=== PATIENT | female | born 1980 | race Caucasian/White ===

== ENCOUNTER 2024-07-17 16:55 | Outpatient (CLI) | payer BC, SELFPAY ==
--- OUTSIDE RECORDS SUMMARY | 2024-07-17 16:58 | XMS_ITS | Referral Summary ---
Author Organization [facility] Address [address] [place] [id number] Care Team Providers Care Adult Psychiatrist Name Role Phone Alexander Bradford Primary Care Provider León Valles MD Unavailable [phone] Basilio Crystal Unavailable Allergies Active Allergy Reactions Criticality Noted Date Comments Blood-Group Specific Substance Unknown 11/01/2012 Patient has a Non-Specific antibody. Blood product orders may be delayed. Draw two purple top tubes and one red top tube for all Type and Screen/Type and Crossmatch orders. Prednisone Unknown 10/27/2015 Rapid heart rate. (pt thinks it was dose related) Medications atorvastatin (LIPITOR) 40 MG tablet Take 40 mg by mouth daily Active HYDROcodone-acet aminophen (NORCO) 10-325 MG per tablet Take 1 tablet by mouth every 4 hours as needed 02/17/2017 Active Active Problems Problem Noted Date Diagnosed Date Pelvic pain 06/11/2019 Overview (06/11/2019): Added automatically from request for surgery [id number] Sacroiliac pain 06/18/2013 Social History Tobacco Use Types Packs/Day Years Used Date Smoking Tobacco: Former Cigarettes Smokeless Tobacco: Never Tobacco Cessation:Counseling Given: No Alcohol Use Standard Drinks/Week Comments Not Currently 0 (1 standard drink = 0.6 oz pur e alcohol) Rare PHQ-2 Answer Date Recorded PHQ-2 Score 0 09/19/2018 Comments No Sex and Gender Information Value Date Recorded Sex Assigned at Not on file 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 Gender Identity Not on file Sexual Orientation Not on file Last Filed Vital Signs Vital Sign Reading Time Taken Comments Blood Pressure 118/80 07/31/2019 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 Pulse 62 07/09/2019 11:15 AM CDT Temperature 36.7 ??C (98 ??F) 07/09/2019 11:15 AM CDT Respiratory Rate 10 07/09/2019 11:15 AM CDT Oxygen Saturation 97% 07/09/2019 11:15 AM CDT Inhaled Oxygen Concentration - - Weight 106.6 kg (235 lb) 07/31/2019 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
--- OUTSIDE RECORDS SUMMARY | 2024-07-17 16:58 | XMS_ITS | Clinical Summary ---
Author Organization [facility] [employer] [facility] [employer] Address [place], [place] [address] Care Team Providers Care Licensed Life And Health Agent Name Role Phone Rachell Alfaro DO Primary Care Provider [phone] Allergies Active Allergy Reactions Criticality Noted Date Comments Blood-Group Specific Substance Other - Describe In Comment Field,*Unknown - Follow up needed 11/01/2012 Patient has a Non-Specific antibody. Blood product orders may be delayed. Draw two purple top tubes and one red top tube for all Type and Screen/Type and Crossmatch orders. Patient has a Non-Specific antibody. Blood product orders may be delayed. Draw two purple top tubes and one red top tube for all Type and Screen/Type and Crossmatch orders. Prednisone Tachycardia,*Unknown - Follow up needed 10/27/2015 Rapid heart rate. (pt thinks it was dose related) Medications Medication Sig Dispensed Refills Start Date End Date Status aluminum chloride (Hypercare) 20 % external solutionIndications:E xcessive sweating Apply topically to affected area(s) at bedtime. 60 mL 11 12/29/2022 Active fenofibrate nanocrystallized (TRICOR) 145 mg tabletIndications:Mix ed hyperlipidemia TAKE 1 TABLET (145 MG) BY MOUTH ONCE DAILY WITH A MEAL 90 Tablet 3 04/16/2024 Active atorvastatin (LIPITOR) 40 mg tabletIndications:Mix ed hyperlipidemia Take 1 Tablet (40 mg) by mouth once daily. 90 Tablet 3 06/10/2024 Active lisinopriL (PRINIVIL; ZESTRIL) 20 mg tabletIndications:Ess ential hypertension Take 1 Tablet (20 mg) by mouth once daily. 90 Tablet 3 06/10/2024 Active HYDROcodone-acetamino phen (7.5-325 mg/tablet)Indications :Bulge of lumbar disc without myelopathy Take 1 Tablet by mouth 4 times daily if needed for Pain. 112 Tablet 07/09/2024 Active HYDROcodone-acetamino phen (7.5-325 mg/tablet)Indications :Bulge of lumbar disc without myelopathy Take 1 Tablet by mouth 4 times daily if needed for Pain. 112 Tablet 06/11/2024 4 Discontinu ed(Reorder (E-cancel not sent)) Active Problems Problem Noted Date Diagnosed Date History of MRSA infection 05/13/2021 Infected cyst of skin 05/13/2021 Pelvic pain 06/11/2019 12/29/2022 Overview (12/29/2022): Added automatically from request for surgery [id number] Fatty liver 06/06/2019 Prediabetes 05/01/2019 Overview (05/01/2019): A1c is 5.7 in April 2019 Intermittent vertigo 02/08/2018 Lumbar facet arthropathy 01/08/2015 Chronic LBP 11/08/2014 Pain medication agreement 02/20/2013 Overview (11/13/2023): Prescriber: Dr. Basilio Crystal, [facility] Alexander Bradford MD Ok to fill at same amount/dose/frequency in my absence. 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 Endometriosis, site unspecified 06/23/2011 L5-S1 DDD with Annular Tear 10/07/2010 Sacroiliac pain 09/28/2010 Mixed hyperlipidemia 07/22/2010 Endometrioma 04/02/2010 Cavus deformity of foot, acquired 11/06/2008 Major depressive disorder, recurrent episode, un specified 01/02/2008 Abnormal glandular Papanicolaou smear of cervix 07/27/2007 Overview (07/27/2007): colposcopy x2 1997 and 1999 CAN II History of polycystic ovaries 2007 Obesity, unspecified 05/09/2007 Resolved Problems Problem Noted Date Diagnosed Date Resolved Date Right ovarian cyst 06/06/2019 9 Back pain 09/28/2010 09/28/2010 Irregular menstrual cycle 05/09/2007 Encounters Date Type Department Care Team Description 07/01/2024 Refill [facility] [address] [place] [address] Basilio Crystal MD Refill Request (HYDROcodone-acetaminop hen (7.5-325 mg/tablet) /) 06/04/[address] [place] [address] Basilio Crystal MD Refill Request (HYDROcodone-acetaminop hen (7.5-325 mg/tablet)) 05/24/2024 3:20 PM CDT Office Visit [address] [place] [address] Rachell Alfaro DO Physical (44 year old ); Medication Management (Refills ); Knee Pain/problem (LEFT - since end of March, no injury or previous problems, has some decreased sensation in the toes (x1 week) - on her feet for 12 hour shifts ); Form (THRIVE form ); Other (Went to [facility] yesterday Glycoprrolate 1mg for sweating ) 05/24/2024 Travel 05/14/[address] [place] [address] Rachell Alfaro DO Refill Request ( LISINOPRIL 20MG TABLET-90 days) 05/10/[address] [address] Basilio Crystal MD Refill Request (HYDROcodone-acetaminop hen (7.5-325 mg/tablet) ) 05/10/[address] [address] Rachell Alfaro DO Refill Request (Lisinopril) 05/08/2024 2:20 PM CDT Office Visit [address] [place] [address] Basilio Crystal MD Follow Up (back pain and medications management) 05/08/2024 Travel from Last 3 Months Immunizations Name Administration Dates Next Due Influenza, IIV3 (Age 6-35 mos) 05/31/2019 Influenza, IIV3 (Age >=3 years) 05/23/2012,05/25 Influenza, IIV4 05/28/2018,05/22/2013 Influenza, IIV4 (=>6mos) MDV 06/25/2019,06/01/20 16 Td (Age >=7 Years) 01/07/2003,12/10/2002 Tdap 05/24/2024,06/13/2013 Family History Medical History Relation Name Comments Other Father b 194 recoveri ng alcoholic Heart Disease Maternal Grandfather ND - 7 0's Hyperlipidemia Maternal Grandfather Hyperlipidemia Maternal Grandmother Hyperlipidemia Mother Hypertension Mother b 194 Cancer Paternal Grandmother brain C A Relation Name Status Comments Father Maternal Grandfather Maternal Grandmother Mother Paternal Grandmother Social History Tobacco Use Types Packs/Day Years Used Date Smoking Tobacco: Never Smokeless Tobacco: Never Tobacco Cessation:Counseling Given: Yes Alcohol Use Standard Drinks/Week Comments No 0 (1 standard drink = 0.6 oz pur e alcohol) PHQ-2 Answer Date Recorded PHQ-2 TOTAL SCORE 0 05/24/2024 Social Connections Answer Date Recorded Do you often feel lonely or isolated from those around you? 0 05/24/2024 Financial Resource Strain Answer Date R ecorded Difficulty of Paying Living Expenses 3 05/24/2024 Difficulty of Paying Living Expenses Not on file 05/24/2024 Food Insecurity Answer Date Recorded Do you worry your food will run out before you are able to buy more? 1 05/24/2024 Transportation Needs Answer Date Record ed Does lack of transportation keep you from medica l appointments? 1 05/24/2024 Does lack of transportation keep you from work, meetings or getting things that you need? 1 05/24/2024 Housing Stability Answer Date Recorded What is your housing situation today? 1 05/24/2024 Sex and Gender Information Value Date Recorded Sex Assigned at Not on file Gender Identity Not on file Sexual Orientation Not on file Obstetrics History Para Term AB IAB SAB Ectopic Multiple Livin g Live Births 2 2 2 0 0 0 0 0 2 Date Outcome GA Total Labor Labor/2nd/3rd Weight Sex Type Anes PTL Sanjana A1 A5 Name Clin Term Term Comments x2 Last Filed Vital Signs Vital Sign Reading Time Taken Comments Blood Pressure 118/80 05/24/2024 3:26 PM CDT Pulse 80 05/24/2024 3:26 PM CDT Temperature 36.9 ??C (98.5 ??F) 01/04/2024 2:08 PM CD T Respiratory Rate 18 01/30/2018 9:13 AM CDT Oxygen Saturation 96% 05/24/2024 3:26 PM CDT Inhaled Oxygen Concentration - - Weight 121.8 kg (268 lb 8 oz) 05/24/2024 3:26 PM CDT Height 178 cm (5' 10.08) 05/24/2024 3:26 PM CDT Body Mass Index 38.44 05/24/2024 3:26 PM CDT Plan of Treatment Upcoming Encounters Date Type Department Care Team (Late st Contact Info) Description 09/02/2024 1:40 PM HEALTH MANAGER Office Visit [facility] [address] [place] [address] Basilio Crystal MD [address] [place] [address] Health Maintenance Due Date Last Done Comments COVID-19 vaccine series ( season) 2024 Influenza for age 9-49 05/12/2024 9, 05/28/2018, 06/01/2016, Additional history exists BMI (ht and wt on same day) for age 18+ 05/24/2025 05/24/2024, 12/29/2022, 11/08/2021, Additional history exists Depression screening for age 12+ 05/24/2025 05/24/2024, 12/29/2022, 12/19/2022, Additional history exists Tetanus booster 05/24/2034 05/24/2024, 11/2012, 06/13/2013, Additional history exists HIV for age 15-65 Completed 12/29/2022 Hepatitis C screening for age 18-79 Completed 12/29/2022 Tdap Completed 05/24/2024, 06/13/2013 Pneumococcal series for age 6-64 Aged Out No longer eligible based on patient's age to complete this topic Procedures Procedure Name Priority Date/Time Associated Diagnosis Comments ALT (SGPT) Routine 05/24/2024 4:13 PM CDT Mixed hyperlipidemia HEMOGLOBIN A1C MONITORING (POCT) Routine 05/24/2024 4:13 PM CDT Prediabetes BASIC METABOLIC PANEL Routine 05/24/2024 4:13 PM CDT Annual physical exam LIPID PANEL W REFLEX MEASURED LDL Routine 05/24/2024 4:13 PM CDT Annual physical exam LC HIV-1/O/2, 4TH GENERATION Routine 12/29/2022 4:40 PM CDT Screening for HIV (human immunodeficiency virus) LC HCV ANTIBODY RFX TO QUANT PCR Routine 12/29/2022 4:40 PM CDT Need for hepatitis C screening test from Last 3 Months or Most Recently Relevant to Health Maintenance Results * (ABNORMAL) LIPID PANEL W REFLEX MEASURED LDL (05/24/2024 4:13 PM CDT) CHOLESTEROL,TOTAL 115 100 - 199 mg/dL 05/24/2024 11:34 PM CDT [facility] Comment: Cholesterol, Total Reference Ranges Desirable <200 mg/dL Borderline 200-239 mg/dL High >=240 mg/dL TRIGLYCERIDES 131 <150 mg/dL 05/24/2024 11:34 PM CDT [facility] HDL CHOLESTEROL 35(L) >40 mg/dL 11:34 PM CDT [facility] NON-HDL CHOLESTEROL 80 <145 mg/dl 05/24/2024 11:34 PM CDT [facility] CHOL/HDL RATIO 3.29 <4.50 05/24/2024 11:34 PM CDT [facility] LDL CHOLESTEROL 54 <=130 mg/dL 05/24/2024 11:34 PM CDT [facility] VLDL CHOLESTEROL 26 <=30 mg/dL 05/24/2024 11:34 PM CDT [facility] PROVIDER ORDERED STATUS RANDOM 05/24/2024 11:34 PM CDT [facility] Blood BLOOD SPECIMEN / Unknown Venipuncture / Unknown 05/24/2024 4:13 PM CDT 05/24/2024 4:15 PM CDT Rachell Krzysztofmilton [place] [facility] [address] [place] [address], * ALT (SGPT) (05/24/2024 4:13 PM CDT) ALT (SGPT) 31 10 - 35 IU/L 05/24/2024 11:34 PM CDT [facility] Blood BLOOD SPECIMEN / Unknown Venipuncture / Unknown 05/24/2024 4:13 PM CDT 05/24/2024 4:15 PM CDT Rachell Krzysztofmilton [place] [facility] Performing Organization Address City/[facility]/ZIP Co de Phone Number [facility] [address] [place] [address], * HEMOGLOBIN A1C MONITORING (POCT) (05/24/2024 4:13 PM CDT) HEMOGLOBIN A1C MONITORING (POCT) 6.3 <=6.4 % 05/24/2024 4:25 PM CDT [facility] Blood BLOOD SPECIMEN / Unknown Venipuncture / Unknown 05/24/2024 4:13 PM CDT 05/24/2024 4:15 PM CDT Narrative [facility] - 05/24/2024 4:25 PM CDT ? (<=6.9%) ? Indicates good control ? (7.0% to 7.9%) ? Indicates fair control ? (>=8.0%) ? Indicates poor control ?? NOTE: ??These thresholds are guidelines and ?individual targets may vary. Falsely low levels may be seen with: Recent Transfusion, Recent Significant Blood Loss, Hemolytic Diseases, or Falsely elevated levels may be seen with: Untreated Anemias, Splenectomy ? Rachell Alfaro DO CHEMISTRY [facility] [address] [place] [address], * (ABNORMAL) BASIC METABOLIC PANEL (05/24/2024 4:13 PM CDT) SODIUM 141 136 - 145 mmol/L 05/24/2024 11:34 PM CDT [facility] POTASSIUM 4.3 3.5 - 5.1 mmol/L 05/24/2024 11:34 PM CDT [facility] CHLORIDE 104 98 - 107 mmol/L 05/24/2024 11:34 PM CDT [facility] CO2,TOTAL 24 22 - 29 mmol/L 05/24/2024 11:34 PM CDT [facility] ANION GAP 13 5 - 18 05/24/2024 11:34 PM CDT [facility] GLUCOSE 117(H) 70 - 99 mg/dL 05/24/2024 11:34 PM CDT [facility] CALCIUM 9.9 8.6 - 10.0 mg/dL 05/24/2024 11:34 PM CDT [facility] BUN 18 6 - 20 mg/dL 05/24/2024 11:34 PM CDT [facility] CREATININE 0.74 0.50 - 0.90 mg/dL 05/24/2024 11:34 PM CDT [facility] BUN/CREAT RATIO 24(H) 10 - 20 11:34 PM T [facility] eGFR >90 >90 mL/min/1.7 3m2 05/24/2024 11:34 PM CDT [facility] Comment:As of 2021, eG FR is calculated by the CKD-EPI creatinine equation without race adjustment. ??eGFR can be influenced by muscle mass, exercise, and diet. ??The reported eGFR is an estimation only and is only applicable if the renal function is stable. Blood BLOOD SPECIMEN / Unknown Venipuncture / Unknown 05/24/2024 4:13 PM CDT 05/24/2024 4:15 PM CDT Rachell Alfaro DO CHEMISTRY [facility] [employer] [facility] [address] [place] [id number], [place] * LC HCV ANTIBODY RFX TO QUANT PCR (12/29/2022 4:40 PM CDT) HCV Ab Non Reactive Non Reactive 01/03/2023 10:06 PM CDT [facility] Blood BLOOD SPECIMEN / Unknown Butterfly / Unknown 12/29/2022 4:40 PM CDT 12/29/2022 4:42 PM CDT Narrative [facility] - 01/03/2023 10:06 PM CDT Performed at: ??[address] - [address] ??[id number] Sales & Service Associate: Tonny Todd MD, Phone: ??[phone] Rachell Alfaro DO LABORATORY [facility] ([facility]) [address] [place] [id number], * LC HIV-1/O/2, 4TH GENERATION (12/29/2022 4:40 PM CDT) HIV Scr 4th Gen Non Reactive Non Reactive 01/03/2023 12:08 PM CDT [facility] Comment: HIV Negative HIV-1/HIV-2 antibodies and HIV-1 p24 antigen were NOT detected. There is no laboratory evidence of HIV infection. Blood BLOOD SPECIMEN / Unknown Butterfly / Unknown 12/29/2022 4:40 PM CDT 12/29/2022 4:42 PM CDT Narrative [facility] ([facility] - 01/03/2023 12:08 PM CDT Performed at: ??01 - [address] ??[id number] Sales & Service Associate: Tonny Todd MD, Phone: ??[phone] Rachell Alfaro DO LABORATORY [facility] ([facility]) [facility] [id number], from Last 3 Months or Most Recently Relevant to Health Maintenance Additional Health Concerns Infection Onset Date Last Indicated MRSA 07/30/2018 11/18/2019 Advance Directives * Full Code (Latest Code Status on File) Date Activated Date Inactivated Comments 10/17/2013 5:47 AM 10/17/2013 12:41 PM * Full Code Date Activated Date Inactivated Comments 11/01/2012 4:22 PM 11/02/2012 1:33 PM * Full Code Date Activated Date Inactivated Comments 11/01/2012 7:37 AM 11/01/2012 4:22 PM * Full Code Date Activated Date Inactivated Comments 04/24/2012 6:18 AM 04/24/2012 2:33 PM * Full Code Date Activated Date Inactivated Comments 06/23/2011 8:01 AM 06/23/2011 5:03 PM Care Teams Licensed Life And Health Agent Relationship Specialty Start Date End Date Rachell Alfaro DO [address] [place] [address] PCP - General Family Practice 12/28/22
--- OUTSIDE RECORDS SUMMARY | 2024-07-17 16:58 | XMS_ITS | Continuity of Care Document ---
Author Organization [facility] Address [address] [place] [address] Phone Care Team Providers Care Founder And Chief Executive Officer Name Role Phone Tereza Gonzalez DNP Unavailable Unavailab le Allergies, Adverse Reactions, Alerts Substance Reaction Status Criticality No Known Allergies Active No Inform ation Medications Medication Instructions Dosage Effective Dates (start - stop) Status Comments hydrocodone 10 mg-acetaminophen 325 mg tablet take 1 tablet by oral route every 4 - 6 hours as needed for pain 1 tablet - Active lisinopril 20 mg tablet take 1 tablet by oral route every day 20 MG - Active fenofibrate nanocrystallized 145 mg tablet take 1 tablet by oral route every day 145 MG - Active atorvastatin 40 mg tablet take 1 tablet by oral route every day 40 MG - Active Procedures Procedure Date OFFICE/OUTPATIENT VISIT, EST Drug Urine Toxology With Chromatography Drug test def 8-14 classes OFFICE/OUTPATIENT VISIT, [facility] Advance Directives Directive Yes / No Effective Date File Name No Information Encounters Encounter Description Practice Location Reason(s) For Visit Diagnoses Date Provider Providers Copied on Encounter OFFICE/OUTPA TIENT VISIT, EST [facility], [address], [place], [id number] , [place] tel:[phone] [facility] [place] Back Pain (chief complaint) Chronic pain syndromeLow back pain, unspecifiedLong term (current) use of opiate analgesic 3 Carlos Starks. [address], [place], [place], [id number], [place]. tel:[phone] Referring Provider: Basilio Crystal [facility] [address] [place], [address]. tel:[phone] [facility], [address] [place] [address], [id number] , [place] tel:[phone] [facility] No Information 3 Crystal Ann Marie. [address] [facility] [address], [id number], [place]. tel:[phone] [facility] [address] [place], [address]. tel:[phone] OFFICE/OUTPA TIENT VISIT, [facility], [address] [place] [address], [id number] , [place] tel:[phone] [facility] Back pain (chief complaint) Chronic pain syndromeLow back pain, unspecifiedLong term (current) use of opiate analgesicEncount er for therapeutic drug level monitoring 3 Crystal Ann Marie. [address] [facility] [address], [id number], [place]. tel:[phone] [facility]: [facility] [address] [place], [address]. tel:[phone] [facility], [address] [place] [address], [id number] , [place] tel:[phone] [facility] No Information 3 Crystal Ann Marie. [address] [facility] [address], [id number], [place]. tel:[phone] Family History Family Member Type Diagnosis Age At Onset No Information Payers Payer name Insurance type Covered alliance party ID Authoriza tion(s) [facility] OOS BL [id number] Social History Type Description Quantity Date Captured Comments Alcohol Use Details No Caffeine Use Details Unknown Tobacco Use Status Current non-smoker Smoking Status Never smoker Sex Female Chief Complaint And Reason For Visit From encounter dated '01/25/2023 15:00'. Back Pain (chief complaint). Description: Severity level is 7. Duration: chronic. The problem is stable. It occurs persistently. Location of pain is lower back. The client describes the pain as an ache. Symptoms are aggravated by lifting, running, sitting, standing, housework and prolonged positions. Symptoms are relieved by pain meds/drugs and rest. Reason For Referral Reason For Referral No Information Plan Of Treatment Date Type Action Status Goal SUBASSEMBLY ASSEMBLER Paperwork. Due on due Goal Creatinine. Due on due Goal ALT (SGPT). Due on due Goal Order Annual PT. Due on due Goal OARS. Due on due Goal FUR PULLER Scanned. Due on due Goal Tobacco Use. Due on due Goal PHQ-9. Due on du e Goal Review Allergy List. Due on due Goal Lipid panel. Due on due Goal Unhealthy drug use screening . Due on due Goal Update Social History. Due o n due Goal Weight. Due on d ue Goal Height. Due on d ue Goal HPV. Due on due Goal Hepatitis C screening. Due o n due Goal Medication Reconciliation. D ue on due Goal UDT. Due on due Goal AST (SGOT). Due on due Goal FUR PULLER Scanned. Due on due Goal SUBASSEMBLY ASSEMBLER Paperwork. Due on due Goal AST (SGOT). Due on due Goal Order Annual PT. Due on due Goal Creatinine. Due on due Goal UDT. Due on due Goal ALT (SGPT). Due on due Goal OARS. Due on due Goal Medication Reconciliation. D ue on due Goal Review Allergy List. Due on due Goal Tobacco Use. Due on due Goal PHQ-9. Due on du e Goal Height. Due on d ue Goal Hepatitis C screening. Due o n due Goal Lipid panel. Due on due Goal Update Social History. Due o n due Goal Weight. Due on d ue Goal FUR PULLER Scanned. Due on due Goal AST (SGOT). Due on due Goal SUBASSEMBLY ASSEMBLER Paperwork. Due on due Goal Order Annual PT. Due on due Goal UDT. Due on due Goal OARS. Due on due Goal ALT (SGPT). Due on due Goal Creatinine. Due on due Goal HPV. Due on due Goal Unhealthy drug use screening . Due on due Goal Lipid panel. Due on due Goal Update Social History. Due o n due Goal HPV. Due on due Goal Hepatitis C screening. Due o n due Goal Height. Due on d ue Goal Tobacco Use. Due on due Goal Medication Reconciliation. D ue on due Goal Weight. Due on d ue Goal Review Allergy List. Due on due Goal PHQ-9. Due on du e Goal Unhealthy drug use screening . Due on due Goal Unhealthy drug use screening . Due on due Goal PHQ-9. Due on du e Goal Review Allergy List. Due on due Goal Weight. Due on d ue Goal Medication Reconciliation. D ue on due Goal Tobacco Use. Due on due Goal Height. Due on d ue Goal Hepatitis C screening. Due o n due Goal HPV. Due on due Goal Update Social History. Due o n due Goal Lipid panel. Due on Apr-18-2 023 due History Of Present Illness Encounter Date Complaint History Of Prese nt Illness Comments: Olivia is here for an in office follow up to discuss medication management. She was seen by my colleague Ann Marie Rojas on 01/06/23 for initial consult. At the time of the visit, she requested [facility] take over her opiate pain medication. She is currently on [place] 10/325 6 tabs per day for chronic back pain. This has historically been prescribed by Dr. Crystal through [facility]. She was referred to pain management to take over this rx. She was last seen by Dr. Crystal in November of 2021. Olivia denies any changes to her pain since her JENNIFER. Denies any other health or medication changes. Her last MRI was in 2015. Last injection was facet joint injections in 2012. She is not interested in repeating a MRI, as she is not interested in procedures or injections. She would be open to PT and medications. Reports current medication regimen provides 80% pain relief, decreasing their pain to a 3/10. Medications allow for increased functionality. Denies side effects from current medication regimen. No other concerns today. Back Pain Severity level i s 7. Duration: chronic. The problem is stable. It occurs persistently. Location of pain is lower back. The client describes the pain as an ache. Symptoms are aggravated by lifting, running, sitting, standing, housework and prolonged positions. Symptoms are relieved by pain meds/drugs and rest. Comments: Olivia is a 42 y/o woman here for initial consult regarding chronic back pain which has persisted for the past 8+ years, and has progressively worsened over the years. She is referred by Dr. Crystal. Pain is located in her low back and SI joint region, and is characterized as aching, deep, and dull pain. Pain level averages 6/10.For pain management, patient has attended PT at [facility], most recently about three years ago (est. 2019) without benefit; has undergone injections with Dr. Crystal without benefit; and has tried Ibuprofen, Tylenol, Hydrocodone, and Oxycodone.Currently managed on [place] 10-325mg q4h, max 6/day, rx'd by Dr. Crystal, which allows her to function throughout the day.Olivia is interested in pain management through [facility]. No other concerns today. Back pain Severity level i s 6. Duration: chronic. It occurs persistently. The client describes the pain as an ache, deep and dull. Symptoms are aggravated by bending, lifting, sitting, standing, walking and housework. Symptoms are relieved by pain meds/drugs and rest. Functional Status Date Functional Assessmen t No Information Instructions Date Instruction Additional Infor mation No Information Assessments Type Assessment Date assessment Chronic pain syndrome 3 impression This is my first richi luation of the patient. Some clinic notes available from [facility]. [place] Judicial criminal backgrounds check completed with no outstanding results or concerning convictions.Reports a hx of chronic back pain which has persisted for the past 8+ years, and has progressively worsened over the years. She is referred by Dr. Crystal. Pain is located in her low back and SI joint region, and is characterized as aching, deep, and dull pain. Pain level averages 6/10.For pain management, patient has attended PT at [facility], most recently about three years ago (est. 2019) without benefit; last injection in 2012, last MRI in 2015. Only managed on [place] at this time assessment Low back pain, unspecified impression No previous back feng arlin, though endorses that she has been seen by [facility] and was told that she is not a candidate for surgery. Lumbar MRI161. Normal alignment. No fracture or spondylolisthesis.2. At L5-S1, stable mild disc degeneration with posterior disk bulging. Otherwise, no spinal canal narrowing. Mild narrowing of bilateral foramina 3. No spinal canal or neural foramina narrowing at the remaining levels 4. Normal SI joints bilaterally. No evidence of joint effusion or abnormal widening assessment terminal make up operator (current) use of opiat e analgesic impression Currently managed on [place] 10-325mg q4h, rx'd by Dr. Crystal.MME: 60mg/day Mental Status Date Cognitive Assessment Orientation - [place] ed to time, place, person, situation. Patient Care Teams Name Effective Dates (start - stop) Status Members No Information
--- OUTSIDE RECORDS SUMMARY | 2024-07-17 16:58 | XMS_ITS | Encounter Summary ---
Author Organization [facility] Address [address] [place] [address] Care Team Providers Care Panel Flow Machine Operator Name Role Phone Alexander Bradford Primary Care Provider UnavailLeón Hawthorne MD Unavailable Basilio Crystal Unavailable Pipe Perea MD Unavailable Reason for Visit * Reason Onset Date Comments Other 11/14/2016 Encounter Details Date Type Department Care Team (Late st Contact Info) Description 11/14/2016 Telephone [facility] [address] [address] [place] [address] [place] [address] Other Social History Tobacco Use Types Packs/Day Years Used Date Smoking Tobacco: Never Smokeless Tobacco: Never Alcohol Use Standard Drinks/Week Comments No 0 (1 standard drink = 0.6 oz pur e alcohol) Comments No Sex and Gender Information Value Date Recorded Sex Assigned at Not on file Legal Sex Female 4:54 AM METER READER INSPECTOR Gender Identity Not on file Sexual Orientation Not on file documented as of this encounter Miscellaneous Notes * Telephone Encounter - Pipe Perea MD - 11/15/2016 12:59 PM CST Patient informed to call and schedule ultrasound and office appointment with me. R READER INSPECTOR * Telephone Encounter - Shahla Collier RN - 11/14/2016 4:16 PM CST 04/19/16 Cystoscopy, urethral dilatation, laparoscopy, lysis of pelvic adhesions, laser vaporization of endometriosis, lysis of pericecal and periappendiceal adhesions. Pt is having pain that feels like she has a cyst on her ovary. Has had pain on right side for a couple of months and feels like the pain is getting worse. Pt takes Vicodin for her back and that has been helping her right sided pain.Pt wants to know if she should be seen and if she should have US prior to visit. 05/04/16 She does have diminished capacity of the remainder of right ovary that is present. We discussed the position of her appendix. She is not ready to return to work. She will return to see us in 3 months. ?? R READER INSPECTOR * Telephone Encounter - Destiney Antonio - 11/14/2016 2:37 PM CST Reason for Call: Other call back Detailed comments: Pt is experiencing pelvic pain. She wants to see Dr. Perea and is wondering if he wants her to have an u/s prior? Phone Number Patient can be reached at: Home number on file [phone] (home) Best Time: anytime Can we leave a detailed message on this number? YES Call taken on 11/14/2016 at 2:37 PM by Destiney Antonio R READER INSPECTOR documented in this encounter Plan of Treatment Not on file documented as of this encounter Visit Diagnoses Not on filedocumented in this encounter Care Teams Panel Flow Machine Operator Relationship Specialty Start Date End Date Alexander Bradford PCP - General Family Practice 05/16/13 León Pink MD [address] [place] [address] Orthopedics 02/12/16 Basilio Crystal [address] [facility] [address] [place] [address] Referring Physician Family Practice 02/12/16 [place] [address] [place] [address] Assigned OBGYN Provider 07/03/20 documented as of this encounter
--- OUTSIDE RECORDS SUMMARY | 2024-07-17 16:58 | XMS_ITS | Encounter Summary ---
Author Organization [facility] Address [address] [place] [address]. [place] [address] Care Team Providers Care Side Stapler Name Role Phone Alexander Bradford Primary Care Provider UnavailLeón Hawthorne MD Unavailable Basilio Crystal Unavailable Pipe Perea MD Unavailable Reason for Visit * Reason Onset Date Comments other 06/10/2019 would like a feng arlin scheduled without an ultrasound; please advise Encounter Details Date Type Department Care Team (Late st Contact Info) Description 06/10/2019 Telephone [facility] [address] [address] [place] [address] [place] [address] other (would like a surgery scheduled without an ultrasound; please advise ) Social History Tobacco Use Types Packs/Day Years Used Date Smoking Tobacco: Never Smokeless Tobacco: Never Alcohol Use Standard Drinks/Week Comments No 0 (1 standard drink = 0.6 oz pur e alcohol) PHQ-2 Answer Date Recorded PHQ-2 Score 0 09/19/2018 Comments No Sex and Gender Information Value Date Recorded Sex Assigned at Not on file Legal 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 She has right lowerquadrant pain and she feels that this is possibly a recurrence of endometriosis. Her CT scan does not show any mass effect and certainly would not show endometriosis. We will bring her back for a detailed vaginal probe ultrasound and reconsultation.?? Pipe Perea MD Scheduled US and visit with Dr Perea 06/20/19 Calling after OV with further questions. Routing to dr Perea to advise. Claudia Nino, RN on 06/11/2019 at 8:32 AM * Telephone Encounter - Katie Thayer - 06/11/2019 7:54 AM CDT Forwarding to triage to discuss with Dr. Perea * Telephone Encounter - Basilio Yu - 06/10/2019 5:10 PM CDT Reason for call: Other Patient called regarding (reason for call): would like a surgery scheduled without an ultrasound; please advise Phone number to reach patient: Cell number on file: Telephone Information: Best Time: any Can we leave a detailed message on this number? YES documented in this encounter Plan of Treatment Not on file documented as of this encounter Visit Diagnoses Not on filedocumented in this encounter Care Teams Side Stapler Relationship Specialty Start Date End Date Alexander Bradford PCP - General Family Practice 05/16/13 León Pink MD [address] [place] [address] Orthopedics 02/12/16 Basilio Crystal [address] [place] [address] Referring Physician Family Practice 02/12/16 [place] [address] [place] [address] Assigned OBGYN Provider 07/03/20 documented as of this encounter
--- OUTSIDE RECORDS SUMMARY | 2024-07-17 16:58 | XMS_ITS | Continuity of Care Document ---
Author Organization [facility] Address [address] [place] [address] Phone Care Team Providers Care Network Control Operator Name Role Phone Diana Murray MD Unavailable Unavailable Allergies, Adverse Reactions, Alerts Substance Reaction Status Criticality prednisone Active No Information Medications Medication Instructions Dosage Effective Dates (start - stop) Status Comments [place] 10 mg-325 mg tablet take 1 Tablet by oral route 4 times every day as needed for pain 1 Tablet - Active Lipitor 40 mg tablet take 1 tablet by oral route every day 40 MG - Active morphine 15 mg immediate release tablet take 1 tablet by oral route 2 times every day as needed 15 MG - Active Senna-S 8.6 mg-50 mg tablet take 1 - 2 tablet by oral route every day 1-2 tablet - No Longer Active Procedures Procedure Date Office/Outpatient Visit, New Routine Venipuncture Dna Antibody, Single Strand Dna Antibody, [place] Nuclear Antigen Antibodies Office/Outpatient Visit, Est Routine Venipuncture C-Reactive Protein Rbc Sed Rate, Nonautomated Results Test Name Date and Time Measure Units Reference Range Abnormal Flag Status Comments Panel Description: DMARD Final AST 17:31:00 42 U/L 5-34 H Final ALT 17:31:00 127 IU/L 5-35 H Final Creatinine 17:31:00 0.5 mg/dL 0.5-1.3 Final ALB 17:31:00 4.6 g/dL 3.5-5.3 Final GFR 17:31:00 149.2 mL/min/ 1.73 m2 Final If patient is -Am erican multiply result by 1.210 Panel Description: DMARD LabCancelled LabCancelled Panel Description: KAYODE 9 Final ssDNA 15:41:00 40.0 U/mL 0.0-99.0 Final Negative 0 - 99 Units/mL Equivocal Range 100 - 200 Units/mLPo sitive >200 Units/mL dsDNA 15:41:00 30.0 IU/mL 0.0-40.0 Final Negative 0 - 40 IU/mL Equivocal 41 - 81 IU/mL Positive >81 IU/mL Sm (Beard) 15:41:00 20.0 U/mL 0.0-89.0 Final MOLD REPAIR TECHNICIAN/SM 15:41:00 12.0 U/mL 0.0-83.0 Final SS-A 15:41:00 28.0 U/mL 0.0-91.0 Final SS-B 15:41:00 2.0 U/mL 0.0-73.0 Final Chromatin 15:41:00 26.0 U/mL 0.0-99.0 Final Scl-70 15:41:00 2.0 U/mL 0.0-32.0 Final Centromere ab 15:41:00 3.0 U/mL 0.0-100.0 Final Advance Directives Directive Yes / No Effective Date File Name No Information Encounters Encounter Description Practice Location Reason(s) For Visit Diagnoses Date Provider Providers Copied on Encounter Office/Outpa tient Visit, [place] [facility], [address], [place], [address], [place] tel:[phone] [facility] , Abnormal Lab Study (chief complaint) Low back painRaised antibody titer Apr-2 8-201 6 Trevor Ortiz. [facility] [address], [place], [address], [place]. tel:[phone] Referring Provider: Diana German, [facility] [address], [place], [address]. tel:[phone] [facility], [address], [place], [address], [place] tel:[phone] [facility] , No Information 6 Trevor Ortiz. [facility] [address], [place], [address], [place]. tel:[phone] Office/Outpa tient Visit, Est [facility], [address], [place], [address], [place] tel:[phone] [facility] , Back Pain (chief complaint) BackacheAbno rmal Liver Enzymes 2 Isra Clemente. [facility] [address], [place], [address], [place]. tel:[phone] Referring Provider: Alexander Vizcarra, [facility] [address] [place], [address]. tel:[phone] Family History Family Member Type Diagnosis Age At Onset Mother Problem (finding) hypertension Payers Payer name Insurance type Covered republican ID Abeba leon(s) [facility] [id number] Social History Type Description Quantity Date Captured Comments Alcohol Use Details No Caffeine Use Details Unknown Tobacco Use Status Never smoked tobacco Smoking Status Never smoker Olivia is . She has 2 children. She does factory work. Non-Smoking Tobacco Use Details : No Details Available : No Details Available Sex Female Vital Signs Date / Time: Height Weight BMI Pulse Rate Blood Pressure Temperature Respiratory Rate Body Surface Area Head Circumference Head Circ. Percentile Wt./Maxi. Percentile BMI percentile Pulse Ox Inhaled Ox 2:56 PM 66.00 in 89.811 kg (198.00 lbs) 31.9 6 kg/m eter (2) 110/70 mm[Hg] Chief Complaint And Reason For Visit From encounter dated '01/07/2016 14:45'. Abnormal Lab Study (chief complaint) Reason For Referral Reason For Referral No Information History Of Present Illness Encounter Date Complaint History Of Prese nt Illness Abnormal Lab Study Functional Status Date Functional Assessmen t No Information Instructions Date Instruction Additional Infor mation No Information Assessments Type Assessment Date assessment Low back pain assessment Raised antibody titer 6 Mental Status Date Cognitive Assessment Orientation - [place] ed to time, place, person, situation. Patient Care Teams Name Effective Dates (start - stop) Status Members No Information
--- OUTSIDE RECORDS SUMMARY | 2024-07-17 16:58 | XMS_ITS | Clinical Summary ---
Author Organization [facility] Address [address] [place] [address] Care Team Providers Care Talent Rep Name Role Phone Alexander Bradford Primary Care Provider León Valles MD Unavailable [phone] Basilio Crystal Unavailable Allergies Active Allergy Reactions [...] (06/11/2019): Added automatically from request for surgery [id number] Sacroiliac pain 06/18/2013 Family History Medical History Relation Comments Hypertension Father Hyperlipidemia Mother Hypertension Mother Relation Status Comments Father Mother Social History Tobacco Use Types Packs/Day Years [...] on file Legal Sex Female 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 Gender Identity Not on file Sexual Orientation Not on file Last Filed Vital Signs Vital Sign Reading Time Taken Comments Blood Pressure 118/80 07/31/2019 3:24 PM SAP PORTAL DEVELOPER Pulse 62 07/09/2019 11:15 AM CDT Temperature 36.7 ??C (98 ??F) 07/09/2019 11:15 AM CDT Respiratory Rate 10 07/09/2019 11:15 AM CDT Oxygen Saturation 97% 07/09/2019 11:15 AM CDT Inhaled Oxygen Concentration - - Weight 106.6 kg (235 lb) 07/31/2019 3:24 PM SAP PORTAL DEVELOPER Height 167.6 cm (5' 6) 07/31/2019 3:24 PM SAP PORTAL DEVELOPER Body Mass Index 37.93 07/31/2019 3:24 PM SAP PORTAL DEVELOPER Plan of Treatment Not on file Insurance [employer] Care Teams Talent Rep Relationship Specialty Start Date End Date Alexander Bradford PCP - General Family Practice 05/16/13 León Pink MD [address] [place], [place] [address] Orthopedics 02/12/16 Basilio Crystal [address] [address] Referring Physician Family Practice 02/12/16
--- NOTE | 2024-07-17 17:30 | MR_ITS ---
[address] [address] Phone:?[phone] Fax:?[phone] Referring Physician Information: Ari Varela M.D. [address] [facility] [address] Phone:?[phone] Fax:?[phone] Patient:Ji Cárdenas D.O.B:?1980 Sex:?Female Phone:?[phone] [facility] MRN:?[id number] Exam Date:?07/17/2024 EXAM: MRI of the LEFT KNEE, without contrast CLINICAL INFORMATION: Female, 44 years old, with left knee pain. INDICATION: Evaluate for medial tear PRIOR SURGERY: None reported. PLAIN FILMS: Radiographs 07/10/2024. COMPARISONS: No prior MRIs available. TECHNICAL INFORMATION: Using a 1.5T MR scanner and a localizing surface coil: sagittals: PD, PDFS coronals: PD, T2FS axials: PD, PDFS SEDATION: None CONTRAST: None FINDINGS: Knee joint: Effusion: Small left knee effusion. Popliteal cyst: None. Loose bodies: None. Subcutaneous and extra-articular soft tissues: Unremarkable. Ligaments: ACL: Intact ACL anteromedial and posterolateral bundles, without sprain or tear. PCL: Intact PCL, without acute or chronic injury. MCL: Intact MCL superficial and deep layers, without injury. LCL: Intact LCL, without injury. Posterolateral corner: No posterolateral corner soft tissue injury. Popliteus, biceps femoris, iliotibial band, popliteofibular ligament and lateral gastrocnemius are intact. Posteromedial corner: No posteromedial corner soft tissue injury. Semimembranosus, pes anserine tendons and posterior oblique ligament are without injury, tendinopathy or bursitis. Extensor mechanism: Patellar tendon: Intact, without tendinopathy. Quadriceps tendon: Intact, without tendinopathy. Retinacula: Medial and lateral retinacula are intact. Fat pads: Unremarkable infrapatellar Hoffa's, quadriceps and prefemoral fat pads. Medial compartment: Medial meniscus: There is incomplete radial tearing involving the periphery of the posterior horn medial meniscus measuring 5 mm in length (sagittal series 6 image 14). A small 3 mm flap of displaced meniscal tissue is felt to be present along the posterior root, as well. There is 3 mm peripheral meniscal extrusion at the level of the body. Medial femoral condyle and tibial plateau: Grade 2 chondral thinning and heterogeneity along the central weightbearing medial femoral condyle and tibial plateau. Lateral compartment: Lateral meniscus: Blunting/radial tearing along the apical free edge of the body segment lateral meniscus measures 5 mm in length (coronal series 8 image 19). Lateral femoral condyle: No chondromalacia or osteochondral abnormality. Lateral tibial plateau: No chondromalacia or osteochondral abnormality. Patellofemoral joint: Patella: No chondromalacia or osteochondral abnormality. Trochlea: No chondromalacia or osteochondral abnormality. Proximal tibiofibular joint: Unremarkable, without evidence of ligament sprain injury, joint effusion or adjacent marrow edema. Bones: No stress/occult fractures or other marrow edema/pathology. IMPRESSION: 1. Incomplete radial tearing at the periphery of the posterior horn medial meniscus with tiny 3 mm suspected displaced labral flap in this region, as well. 3 mm peripheral meniscal extrusion. 2. Short segment blunting/radial tearing of the apical free edge body segment lateral meniscus. 3. Mild chondromalacia along the central weightbearing medial femoral condyle and tibial plateau. 4. No cruciate or collateral ligament sprain/tear. 5. Small knee joint effusion. KME Electronically signed on 07/18/2024 1:15:00 PM by Tahmina Matthews M.D.
== END 2024-07-17 16:56 | disposition home or self-care (01) ==
LOC: MRI 16:56
PROVIDERS: PCP Student in an Organized Health Care Education/Training Program; Visit Provider Orthopaedic Surgery
DX: M25.562 Pain in left knee (principal); S83.222A Peripheral tear of medial meniscus, current injury, left knee, initial encounter; S83.282A Other tear of lateral meniscus, current injury, left knee, initial encounter; M94.262 Chondromalacia, left knee; M25.462 Effusion, left knee
CPT/HCPCS: 73721

== ENCOUNTER 2024-08-15 09:07 | Day surgery (SDC) | payer BC, SELFPAY ==
[2024-08-15] VITALS (11 sets, daily range): BP systolic 107–121; BP diastolic 59–84; PULSE 66–83; RESP 14–16; TEMP 36.1–36.7; O2SAT 94–97; BMI 43.0
--- OUTSIDE RECORDS SUMMARY | 2024-08-15 09:12 | XMS_ITS | Referral Summary ---
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 POWDER WORKER Gender Identity Not on file Sexual Orientation Not on file Last Filed Vital Signs Vital Sign Reading Time Taken Comments Blood Pressure 118/80 07/31/2019 3:24 PM POWDER WORKER Pulse 62 07/09/2019 11:15 AM CDT Temperature 36.7 C (98 F) 07/09/2019 11:15 AM CDT Respiratory Rate 10 07/09/2019 11:15 AM CDT Oxygen Saturation 97% 07/09/2019 11:15 AM CDT Inhaled Oxygen Concentration - - Weight 106.6 kg (235 lb) 07/31/2019 3:24 PM POWDER WORKER Height 167.6 cm (5' 6) 07/31/2019 3:24 PM POWDER WORKER Body Mass Index 37.93 07/31/2019 3:24 PM POWDER WORKER Plan of Treatment Not on file Insurance [employer] Care Teams Aircraft Machinist Helper Relationship Specialty Start Date End Date Alexander Bradford PCP - General Family Practice 05/16/13 León Pink MD [address] [facility] [address] [place] [address] Orthopedics 02/12/16 Basilio Crystal [id number] [place] [address] Referring Physician Family Practice 02/12/16
--- OUTSIDE RECORDS SUMMARY | 2024-08-15 09:12 | XMS_ITS | Clinical Summary ---
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 TECHNICIAN Gender Identity Not on file Sexual Orientation Not on file Last Filed Vital Signs Vital Sign Reading Time Taken Comments Blood Pressure 118/80 07/31/2019 3:24 PM SOLAR TECHNICIAN Pulse 62 07/09/2019 11:15 AM CDT Temperature 36.7 C (98 F) 07/09/2019 11:15 AM CDT Respiratory Rate 10 07/09/2019 11:15 AM CDT Oxygen Saturation 97% 07/09/2019 11:15 AM CDT Inhaled Oxygen Concentration - - Weight 106.6 kg (235 lb) 07/31/2019 3:24 PM SOLAR TECHNICIAN Height 167.6 cm (5' 6) 07/31/2019 3:24 PM SOLAR TECHNICIAN Body Mass Index 37.93 07/31/2019 3:24 PM SOLAR TECHNICIAN Plan of Treatment Not on file Insurance [facility] COMM[employer] Care Teams Wet Mixer Relationship Specialty Start Date End Date Alexander Bradford PCP - General Family Practice 05/16/13 León Pink MD [address] [place] [address] Orthopedics 02/12/16 Basilio Crystal [address] [address] Referring Physician Family Practice 02/12/16
--- OUTSIDE RECORDS SUMMARY | 2024-08-15 09:12 | XMS_ITS | Continuity of Care Document ---
Author Organization [facility] Address [address] [place] [address] Phone Care Team Providers Care Physical Therapist Assistant Name Role Phone Diana Murray MD Unavailable Unavailable Allergies, Adverse Reactions, Alerts Substance Reaction Status Criticality prednisone Active No Information Medications Medication Instructions Dosage Effective Dates (start - stop) Status Comments [place] 10 mg-325 mg tablet take 1 Tablet [...] Venipuncture Dna Antibody, Single Strand Dna Antibody, [place] Nuclear Antigen Antibodies Office/Outpatient Visit, Est Routine [...] Sm (Beard) 15:41:00 20.0 U/mL 0.0-89.0 Final HATCHERY MAN/SM 15:41:00 12.0 U/mL 0.0-83.0 Final SS-A 15:41:00 [...] Consultants, [address], [place], [address], [place] tel:[phone] [facility] , Abnormal Lab Study (chief complaint) Low back painRaised antibody titer Apr-2 8-201 6 Trevor Ortiz. [facility] [address], [place], [address], [place]. tel:[phone] Referring Provider: Diana German, [facility] [address], [place], [address]. tel:[phone] [facility], [address], [place], [address], [place] tel:[phone] [facility] , No Information 6 Trevor Ortiz. [facility] [address], [place], [address], [place]. tel:[phone] Office/Outpa tient Visit, Est [facility], [address], [place], [address], [place] tel:[phone] [facility] , Back Pain (chief complaint) BackacheAbno rmal Liver Enzymes 2 Isra Clemente. [facility] [address], [place], [address], [place]. tel:[phone] Referring Provider: Alexander Vizcarra, [facility] [address] [place], [address]. tel:[phone] Family History Family Member Type Diagnosis Age At Onset Mother Problem (finding) hypertension Payers Payer name Insurance type Covered libertarian ID Abeba leon(s) [facility] [id number] Social History Type Description Quantity Date Captured [...] Mental Status Date Cognitive Assessment Orientation - [place] ed to time, place, person, situation. Patient Care Teams Name Effective Dates (start - stop) Status Members No Information
--- OUTSIDE RECORDS SUMMARY | 2024-08-15 09:12 | XMS_ITS | Clinical Summary ---
Author Organization [employer] Address [place], [place] [address] Care Team Providers Care Architectural Renderer Name Role Phone Rachell Alfaro DO Primary Care Provider [phone] Allergies Active Allergy Reactions Criticality Noted Date [...] daily if needed for Pain. 112 Tablet 08/06/2024 Active glycopyrrolate (ROBINUL) 1 mg tablet Take 1 mg by mouth two times daily. 06/20/2024 Active HYDROcodone-acetamino phen (7.5-325 mg/tablet)Indications :Bulge of lumbar disc without myelopathy Take 1 Tablet by mouth 4 times daily if needed for Pain. 112 Tablet 07/09/2024 4 Discontinu ed(Reorder (E-cancel not sent)) Active Problems Problem Noted Date Diagnosed Date History of MRSA infection 05/13/2021 Infected cyst of skin 05/13/2021 Pelvic pain 06/11/2019 12/29/2022 Overview (12/29/2022): Added automatically from request for surgery [id number] Fatty liver 06/06/2019 Prediabetes 05/01/2019 Overview (05/01/2019): A1c is 5.7 in April 2019 Intermittent vertigo 02/08/2018 Lumbar facet arthropathy 01/08/2015 Chronic LBP 11/08/2014 Pain medication agreement 02/20/2013 Overview (11/13/2023): Prescriber: Dr. Basilio Crystal, [facility] Alexander Bradford MD Ok to fill at same amount/dose/frequency in my absence. Controlled substance agreement: 02/20/13 Last UDS on 11/08/2021 DEHYDRATION UNIT OPERATOR query 11/13/2023 Endometriosis, site unspecified 06/23/2011 L5-S1 [...] Encounters Date Type Department Care Team Description 08/09/2024 3:05 PM ORCHESTRATOR Office Visit [facility] [address] [place] [address] Halle Bahena MD Preoperative Exam (08/15/[address] [facility] [address] Varela Left knee meniscus repair ) 08/09/2024 Travel 07/31/2024 Refill [facility] [address] [place] [address] Basilio Crystal MD Refill Request (HYDROcodone-acetamino phen (7.5-325 mg/tablet) ) 07/17/2024 Orders Only [facility] Scanner 1 scan: (1-Ord) [facility], [facility] KNEE W/O CONT, 07/17/2024 07/01/2024 Refill [facility] [address] [place] [address] Basilio Crystal MD Refill Request (HYDROcodone-acetamino phen (7.5-325 mg/tablet) /) 06/04/2024 Refill [facility] [address] [place] [address] Basilio Crystal MD Refill Request (HYDROcodone-acetamino phen (7.5-325 mg/tablet)) 05/24/2024 3:20 PM CDT Office Visit [facility] [address] [place] [address] Rachell Alfaro, Physical (44 year old ); Medication Management (Refills ); Knee Pain/problem (LEFT - since end of March, no injury or previous problems, has some decreased sensation in the toes (x1 week) - on her feet for 12 hour shifts ); Form (THRIVE form ); Other (Went to [place] yesterday Glycoprrolate 1mg for sweating ) 05/24/2024 Travel from Last 3 Months Immunizations Name Administration Dates Next Due Influenza, IIV3 (Age 6-35 mos) 05/31/2019 Influenza, IIV3 (Age >=3 years) 05/23/2012,05/25 Influenza, IIV4 05/28/2018,05/22/2013 Influenza, IIV4 (=>6mos) MDV 06/25/2019,06/01/20 16 Td (Age >=7 Years) 01/07/2003,12/10/2002 Tdap 05/24/2024,06/13/2013 Family History Medical History Relation Name Comments Other Father b 194 recoveri ng alcoholic Heart Disease Maternal Grandfather [place] - 7 0's Hyperlipidemia Maternal Grandfather Hyperlipidemia [...] Sign Reading Time Taken Comments Blood Pressure 125/84 08/09/2024 3:17 PM ORCHESTRATOR Pulse 69 08/09/2024 3:17 PM ORCHESTRATOR Temperature 36.9 C (98.5 F) 01/04/2024 2:08 PM CDT Respiratory Rate 18 01/30/2018 9:13 AM CDT Oxygen Saturation 97% 08/09/2024 3:17 PM ORCHESTRATOR Inhaled Oxygen Concentration - - Weight 121.1 kg (267 lb) 08/09/2024 3:17 PM ORCHESTRATOR Height 178 cm (5' 10.08) 05/24/2024 3:26 PM CDT Body Mass Index 38.22 05/24/2024 3:26 PM CDT Plan of Treatment Upcoming Encounters Date Type Department Care Team (Late st Contact Info) Description 09/02/2024 1:40 PM ORCHESTRATOR Office Visit [facility] [address] [place] [address] Basilio Crystal MD [address] [place] [address] Health Maintenance Due Date Last Done Comments [...] Procedure Name Priority Date/Time Associated Diagnosis Comments POTASSIUM Routine 08/09/2024 3:42 PM ORCHESTRATOR Pre-op exam SCAN-MRI INTERPRETATION 07/17/2024 12:00 AM ORCHESTRATOR ALT (SGPT) Routine 05/24/2024 4:13 PM CDT [...] Recently Relevant to Health Maintenance Results * POTASSIUM (08/09/2024 3:42 PM ORCHESTRATOR) POTASSIUM 4.7 3.5 - 5.3 mmol/L [facility] Blood BLOOD SPECIMEN / Unknown 08/09/2024 3:42 PM ORCHESTRATOR 08/09/2024 3:42 PM ORCHESTRATOR Halle Bahena MD CHEMISTRY [employer] [facility] [address] [place] [address], [facility] [address] [place] [address] * SCAN-MRI INTERPRETATION (07/17/2024 12:00 AM ORCHESTRATOR) Anatomical Region Laterality Modality Other Scanner OTHER * (ABNORMAL) LIPID PANEL W REFLEX MEASURED LDL (05/24/2024 4:13 PM CDT) CHOLESTEROL,TOTAL 115 100 - 199 mg/dL 05/24/2024 11:34 PM CDT [facility] Comment: Cholesterol, Total Reference Ranges Desirable <200 mg/dL Borderline 200-239 mg/dL High >=240 mg/dL TRIGLYCERIDES 131 <150 mg/dL 05/24/2024 11:34 PM CDT [facility] HDL CHOLESTEROL 35(L) >40 mg/dL 11:34 PM CDT [facility] NON-HDL CHOLESTEROL 80 <145 mg/dl 05/24/2024 11:34 PM CDT [facility] CHOL/HDL RATIO 3.29 <4.50 05/24/2024 11:34 PM CDT [facility] LDL CHOLESTEROL 54 <=130 mg/dL 05/24/2024 11:34 PM CDT [facility] VLDL CHOLESTEROL 26 <=30 mg/dL 05/24/2024 11:34 PM CDT [facility] PROVIDER ORDERED STATUS RANDOM 05/24/2024 11:34 PM CDT [facility] Blood BLOOD SPECIMEN / Unknown Venipuncture / Unknown 05/24/2024 4:13 PM CDT 05/24/2024 4:15 PM CDT Rcahell Alfaro DO CHEMISTRY [facility] [address] [place] [address], * ALT (SGPT) (05/24/2024 4:13 PM CDT) ALT (SGPT) 31 10 - 35 IU/L 05/24/2024 11:34 PM CDT [facility] Blood BLOOD SPECIMEN / Unknown Venipuncture / Unknown 05/24/2024 4:13 PM CDT 05/24/2024 4:15 PM CDT Rachell Alfaro DO [facility] [address] [place] [address], [place] * HEMOGLOBIN A1C MONITORING (POCT) (05/24/2024 4:13 PM CDT) Pathologist [facility] HEMOGLOBIN A1C MONITORING (POCT) 6.3 <=6.4 % 05/24/2024 4:25 PM CDT [facility] Blood BLOOD SPECIMEN / Unknown Venipuncture / Unknown 05/24/2024 4:13 PM CDT 05/24/2024 4:15 PM CDT Narrative [facility] - 05/24/2024 4:25 PM CDT (<=6.9%) Indicates good control (7.0% to 7.9%) Indicates fair control (>=8.0%) Indicates poor control NOTE: These thresholds are guidelines and individual targets may vary. Falsely low levels may be seen with: Recent Transfusion, Recent Significant Blood Loss, Hemolytic Diseases, or Falsely elevated levels may be seen with: Untreated Anemias, Splenectomy Tailored CHEMISTRY Performing Organization Address [facility]/ZIP Co de Phone Number [facility] [address] [place] [address], * (ABNORMAL) BASIC METABOLIC PANEL (05/24/2024 4:13 PM CDT) [facility] SODIUM 141 136 - 145 mmol/L 05/24/2024 11:34 PM CDT [facility] POTASSIUM 4.3 3.5 - 5.1 mmol/L 05/24/2024 11:34 PM CDT [facility] CHLORIDE 104 98 - 107 mmol/L 05/24/2024 11:34 PM CDT [facility] CO2,TOTAL 24 22 - 29 mmol/L 05/24/2024 11:34 PM CDT [facility] ANION GAP 13 5 - 18 05/24/2024 11:34 PM CDT [facility] GLUCOSE 117(H) 70 - 99 mg/dL 05/24/2024 11:34 PM CDT [facility] CALCIUM 9.9 8.6 - 10.0 mg/dL 05/24/2024 11:34 PM CDT [facility] BUN 18 6 - 20 mg/dL 05/24/2024 11:34 PM CDT [facility] CREATININE 0.74 0.50 - 0.90 mg/dL 05/24/2024 11:34 PM CDT [facility] BUN/CREAT RATIO 24(H) 10 - 20 11:34 PM CDT [facility] eGFR >90 >90 mL/min/1.7 3m2 05/24/2024 11:34 PM CDT [facility] Comment:As of 2021, eG FR is calculated by the CKD-EPI creatinine equation without race adjustment. eGFR can be influenced by muscle mass, exercise, and diet. The reported eGFR is an estimation only and is only applicable if the renal function is stable. Blood BLOOD SPECIMEN / Unknown Venipuncture / Unknown 05/24/2024 4:13 PM CDT 05/24/2024 4:15 PM CDT Rachell Alfaro DO CHEMISTRY [facility] [address] [place] [address], [place] * LC HCV ANTIBODY RFX TO QUANT PCR (12/29/2022 4:40 PM CDT) [facility] HCV Ab Non Reactive Non Reactive 01/03/2023 10:06 PM CDT [facility] Blood BLOOD SPECIMEN / Unknown Butterfly / Unknown 12/29/2022 4:40 PM CDT 12/29/2022 4:42 PM CDT Narrative [facility] - 01/03/2023 10:06 PM CDT Performed at: 01 - [address] [id number] Dat Instructor: Tonny Todd MD, Phone: [phone] Rachell Blankenshipmilton [facility] [address] [place] [address] * LC HIV-1/O/2, 4TH GENERATION (12/29/2022 4:40 PM CDT) HIV Scr 4th Gen Non Reactive Non Reactive 01/03/2023 12:08 PM CDT [facility] Comment: HIV Negative HIV-1/HIV-2 antibodies and HIV-1 p24 antigen were NOT detected. There is no laboratory evidence of HIV infection. Blood BLOOD SPECIMEN / Unknown Butterfly / Unknown 12/29/2022 4:40 PM CDT 12/29/2022 4:42 PM CDT Narrative [facility] - 01/03/2023 12:08 PM CDT Performed at: [address] - [address] [id number] Dat Instructor: Tonny Todd MD, Phone: [phone] Rachell Krzysztofmilton [facility] Performing Organization Address City/[facility]/ZIP Co de Phone Number [facility] [address] [place] [address] from Last 3 Months or Most Recently [...] 8:01 AM 06/23/2011 5:03 PM Care Teams Architectural Renderer Relationship Specialty Start Date End Date Rachell Alfaro DO [address] [place] [address] PCP - General Family Practice 12/28/22
--- OUTSIDE RECORDS SUMMARY | 2024-08-15 09:12 | XMS_ITS | Encounter Summary ---
Author Organization [facility] Address [address] [place] [address] Care Team Providers Care Tax Compliance Agent Name Role Phone Alexander Bradford Primary Care Provider UnavailLeón Hawthorne MD Unavailable Basilio Crystal Unavailable Pipe Perea MD Unavailable [phone] Reason for Visit * Reason Onset Date Comments Other 11/14/2016 Encounter Details Date Type Department Care Team (Late st Contact Info) Description 11/14/2016 Telephone [facility] [address] [address] [place] [address] [place] [address] Other Social History Tobacco Use Types Packs/Day Years Used Date Smoking Tobacco: Never Smokeless Tobacco: Never Alcohol Use Standard Drinks/Week Comments No 0 (1 standard drink = 0.6 oz pur e alcohol) Comments No Sex and Gender Information Value Date Recorded Sex Assigned at Not on file Legal Sex Female 4:54 AM OPTIMIZATION SPECIALIST Gender Identity Not on file Sexual Orientation Not on file documented as of this encounter Miscellaneous Notes * Telephone Encounter - Pipe Perea MD - 11/15/2016 12:59 PM CST Patient informed to call and schedule ultrasound and office appointment with me. MIZATION SPECIALIST * Telephone Encounter - Shahla Collier RN [...] to see us in 3 months. ?? MIZATION SPECIALIST * Telephone Encounter - Destiney Antonio - 11/14/2016 2:37 PM CST Reason for Call: Other call back Detailed comments: Pt is experiencing pelvic pain. She wants to see Dr. Perea and is wondering if he wants her to have an u/s prior? Phone Number Patient can be reached at: Home number on file [phone] (home) Best Time: anytime Can we leave a detailed message on this number? YES Call taken on 11/14/2016 at 2:37 PM by Destiney Antonio MIZATION SPECIALIST documented in this encounter Plan of Treatment Not on file documented as of this encounter Visit Diagnoses Not on filedocumented in this encounter Care Teams Tax Compliance Agent Relationship Specialty Start Date End Date Alexander Bradford PCP - General Family Practice 05/16/13 León Pink MD [address] [place] [address] Orthopedics 02/12/16 Basilio Crystal [address] [facility] [address] [place] [address] Referring Physician Family Practice 02/12/16 [place] [address] [place] [address] Assigned OBGYN Provider 07/03/20 documented as of this encounter
--- OUTSIDE RECORDS SUMMARY | 2024-08-15 09:12 | XMS_ITS | Continuity of Care Document ---
Author Organization [facility] Address [address] [place] [address] Phone Care Team Providers Care Retail Greeter Name Role Phone Tereza Gonzalez DNP Unavailable [...] Drug test def 8-14 classes OFFICE/OUTPATIENT VISIT, [facility] Advance Directives Directive Yes / No Effective Date File Name No Information Encounters Encounter Description Practice Location Reason(s) For Visit Diagnoses Date Provider Providers Copied on Encounter OFFICE/OUTPA TIENT VISIT, EST [facility], [address] [place], [place], [id number] , [place] tel:[phone] [facility] [place] Back Pain (chief complaint) Chronic pain syndromeLow back pain, unspecifiedLong term (current) use of opiate analgesic 3 Carlos Starks. [address], [place], [place], [id number], [place]. tel:[phone] Referring Provider: Basilio Crystal [facility] [address] [place], [address]. tel:[phone] [facility], [address] [place] [address], [id number] , [place] tel:[phone] [facility] No Information 3 Crystal Ann Marie. [address] [facility] [address], [id number], [place]. tel:[phone] [facility] [address] [place], [address]. tel:[phone] OFFICE/OUTPA TIENT VISIT, [facility], [address] [place] [address], [id number] , [place] tel:[phone] [facility] Back pain (chief complaint) Chronic pain syndromeLow back pain, unspecifiedLong term (current) use of opiate analgesicEncount er for therapeutic drug level monitoring 3 Crystal Ann Marie. [address] [facility] [address], [id number], [place]. tel:[phone] [facility] [address] [place], [address]. tel:[phone] [facility], [address] [place] [address], [id number] , [place] tel:[phone] [facility] No Information 3 Crystal Ann Marie. [address] [facility] [address], [id number], [place]. tel:[phone] Family History Family Member Type Diagnosis Age At Onset No Information Payers Payer name Insurance type Covered republican ID Authoriza tion(s) [facility] OOS BL [id number] Social History Type Description Quantity Date Captured [...] Of Treatment Date Type Action Status Goal UDT. Due on due Goal AST (SGOT). Due on due Goal Review Allergy List. Due [...] Medication Reconciliation. D ue on due Goal YEAST CULTURE OPERATOR Paperwork. Due on due Goal Creatinine. Due on due Goal ALT (SGPT). Due on due Goal Order Annual PT. Due on due Goal OARS. Due on due Goal CROSSWORD PUZZLE MAKER Scanned. Due on due Goal Tobacco Use. Due on due Goal PHQ-9. Due on du e Goal CROSSWORD PUZZLE MAKER Scanned. Due on due Goal YEAST CULTURE OPERATOR Paperwork. Due on due Goal AST (SGOT). Due on due Goal Order Annual PT. Due on due Goal Creatinine. Due on due Goal UDT. Due on due Goal ALT (SGPT). Due on due Goal OARS. Due on due Goal Unhealthy drug use screening . Due on due Goal HPV. Due on due Goal Creatinine. Due on due Goal ALT (SGPT). Due on due Goal OARS. Due on due Goal UDT. Due on due Goal Order Annual PT. Due on due Goal YEAST CULTURE OPERATOR Paperwork. Due on due Goal AST (SGOT). Due on due Goal CROSSWORD PUZZLE MAKER Scanned. Due on due Goal Weight. Due on d ue Goal Update Social History. Due o n due Goal Lipid panel. Due on due Goal Hepatitis C screening. Due o n due Goal Height. Due on d ue Goal PHQ-9. Due on du e Goal Tobacco Use. Due on due Goal Review Allergy List. Due on due Goal Medication Reconciliation. D ue on due Goal Lipid panel. Due on [...] Date Complaint History Of Prese nt Illness Back Pain Severity level i s 7. Duration: chronic. The problem is stable. It occurs persistently. Location of pain is lower back. The client describes the pain as an ache. Symptoms are aggravated by lifting, running, sitting, standing, housework and prolonged positions. Symptoms are relieved by pain meds/drugs and rest. Comments: Olivia is here for an in office follow up to discuss medication management. She was seen by my colleague Ann Marie Rojas on 01/06/23 for initial consult. At the time of the visit, she requested [facility] take over her opiate pain medication. She is currently on [place] 10/ 6 tabs per day for chronic back pain. This has historically been prescribed by Dr. Crystal through [facility]. She was referred to pain [...] medication regimen. No other concerns today. Back pain Severity [...] pain management, patient has attended PT at [facility], most recently about three years ago (est. 2019) without benefit; has undergone injections with Dr. Crystal without benefit; and has tried Ibuprofen, Tylenol, Hydrocodone, and Oxycodone.Currently managed on [place] 10-325mg q4h, max 6/day, rx'd by Dr. Crystal, which allows her to function throughout the day.Olivia is interested in pain management through [facility]. No other concerns today. Functional Status Date Functional Assessmen t No Information Instructions Date Instruction Additional Infor mation No Information Assessments Type Assessment Date assessment Chronic pain syndrome 3 impression This is my first richi luation of the patient. Some clinic notes available from [facility]. [place] Judicial criminal backgrounds check completed with no [...] pain management, patient has attended PT at [facility], most recently about three years ago (est. 2019) without benefit; last injection in 2012, last MRI in 2015. Only managed on [place] at this time assessment Low back pain, unspecified impression No previous back feng arlin, though endorses that she has been seen by [facility] and was told that she is not [...] of joint effusion or abnormal widening assessment plate fitter (current) use of opiat e analgesic impression Currently managed on [place] 10-325mg q4h, rx'd by Dr. Crystal.MME: 60mg/day Mental Status Date Cognitive Assessment Orientation - [place] ed to time, place, person, situation. Patient Care Teams Name Effective Dates (start - stop) Status Members No Information
--- OUTSIDE RECORDS SUMMARY | 2024-08-15 09:12 | XMS_ITS | Encounter Summary ---
Author Organization [facility] Address [address] [place] [address]. [place] [address] Care Team Providers Care [employer] Name Role Phone Alexander Bradford Primary Care Provider UnavailLeón Hawthorne MD Unavailable Basilio Crystal Unavailable Pipe Perea MD Unavailable Reason for Visit * Reason Onset Date Comments other 06/10/2019 would like a feng arlin scheduled without an ultrasound; please advise Encounter Details Date Type Department Care Team (Late st Contact Info) Description 06/10/2019 Telephone [facility] [address] [address] [place] [address] [place] [address] other (would like a surgery [...] on file Legal Sex Female 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
[2024-08-15] MEDS: SODIUM CHLORIDE 0.9 % (FLUSH) 10 ML SYRINGE IVF (09:40)
--- NOTE | 2024-08-15 09:49 | SUR.PREOP ---
PT here for crutch training.
--- NOTE | 2024-08-15 11:46 | W.ANESCHARGE ---
Anesthesia Charges Start Date/Time Anesthesia Start Date: 08/15/24 Anesthesia Start Time: 12:23 Stop Date/Time Anesthesia Stop Date: 08/15/24 Anesthesia Stop Time: 13:28
[2024-08-15] MEDS: LACTATED RINGERS 1000 ML 1,000 ML 100 ML IV (12:25)
[2024-08-15] MEDS: CEFAZOLIN 1 GM inj 3 GM IVP (12:43)
[2024-08-15] MEDS: BUPIVACAINE 0.25% 30 ML INJECTION (13:09)
--- NOTE | 2024-08-15 13:22 | PM.ORPRC ---
Procedure Note Date of procedure: 08/15/24 Procedure: PREOPERATIVE DIAGNOSIS: Left knee medial meniscus root tear POSTOPERATIVE DIAGNOSIS: Left knee intact medial meniscus root, early medial compartment osteoarthritis NAME OF OPERATION: Left knee diagnostic arthroscopy, medial femoral condyle chondroplasty SURGEON: Ari Varela MD MODERN AND CONTEMPORARY ART CURATOR: LEELEE Aragon ANESTHESIA: Spinal ESTIMATED BLOOD LOSS: 0 mL COMPLICATIONS: None SPECIMENS: None DRAINS: None PREOPERATIVE ANTIBIOTICS: Ancef 2 gram INDICATIONS: The patient is a 44-year-old with a history of left knee medial pain. MRI scan is consistent with a medial meniscus root tear. Despite appropriate nonoperative management, including activity modification, antiinflammatories, zlon-jal-migvndq pain medication, bracing, physical therapy, and injections they continue to have pain and disability. Operative intervention was offered. The risks, benefits and expected outcomes were discussed in detail. These included but were not limited to: Infection, bleeding, injury to blood vessel or nerve, venous thromboembolism. All questions were answered to their satisfaction. PROCEDURE: Spinal anesthesia was administered. The patient was placed supine on the operating room table. The left lower extremity was prepped and draped in the usual sterile fashion. The limb was exsanguinated with the Aníbal bandage. The pneumatic tourniquet was inflated to 300 mmHg. A standard anterolateral portal was established. The arthroscope was introduced. The working portal was established anteromedially. Diagnostic arthroscopy was performed with findings as follows: The suprapatellar pouch is normal. Articular surface on the patella is normal. Articular surface on the trochlea is normal. The medial gutter is normal. The medial compartment shows diffuse grade 3 change on the medial femoral condyle and medial tibial plateau. The medial meniscus is normal. There is no tear of the posterior root. This was well visualized and aggressively tested with the shaver and probe. The notch shows the ACL to be intact. The lateral compartment shows normal articular cartilage on the lateral femoral condyle and lateral tibial plateau. The lateral meniscus is normal. The lateral gutter is normal. Unstable chondral flaps on the medial femoral condyle and medial tibial plateau were debrided with the shaver, taken to a stable base. Arthroscopic instruments were removed, the portal sites were Steri-Stripped closed, the knee was infiltrated with 30 mL of 0.25% Marcaine without epinephrine. A dry dressing was applied, the tourniquet was released. Sponge and needle counts were correct x 2. The patient tolerated the procedure well. There were no apparent complications. They were carefully transferred to the hospital bed and taken to the postanesthesia care unit in satisfactory condition. PLAN: The patient will be discharged to home. They may weightbear as tolerates. Range of motion will be unrestricted. They will follow up in the office next week for a wound check.
--- NOTE | 2024-08-15 13:48 | W.ANESCHARGE ---
Anesthesia Charges Start Date/Time Anesthesia Start Date: 08/15/24 Anesthesia Start Time: 12:23 Stop Date/Time Anesthesia Stop Date: 08/15/24 Anesthesia Stop Time: 13:28
[2024-08-15] MEDS: OxyCODONE/APAP 5-325 TABLET 1 TAB PO (14:35)
== END 2024-08-15 14:58 | disposition home or self-care (01) ==
LOC: OR 09:08
PROVIDERS: PCP Student in an Organized Health Care Education/Training Program; Visit Provider Orthopaedic Surgery
PROC: (CPT 29882; principal; 2024-08-15 10:45)
DX: M17.12 Unilateral primary osteoarthritis, left knee (principal)
CPT/HCPCS: 29877; 01400; 97116; 97161; A9270; J0665; J0690; J1100; J2250; J2405; J2704; J3010; J3490; J7120

== ENCOUNTER 2024-09-05 11:15 | Outpatient (RCR) | payer BC, SELFPAY | END 2024-10-30 13:48 | disposition home or self-care (01) | PROVIDERS: PCP Student in an Organized Health Care Education/Training Program; Visit Provider Orthopaedic Surgery | DX: Z98.890 Other specified postprocedural states (principal); M25.562 Pain in left knee; Z74.09 Other reduced mobility; R26.9 Unspecified abnormalities of gait and mobility; R26.81 Unsteadiness on feet; Z51.89 Encounter for other specified aftercare | CPT/HCPCS: 97110; 97140; 97161 ==

== ENCOUNTER 2025-05-23 06:15 | Outpatient (CLI) | payer BC, SELFPAY ==
--- NOTE | 2025-05-23 07:57 | P.ANES_ITS ---
Anesthesia Charges Start Date/Time Anesthesia Start Date: 05/23/25 Anesthesia Start Time: 07:33 Stop Date/Time Anesthesia Stop Date: 05/23/25 Anesthesia Stop Time: 07:54 Coding CPT Codes CPT Codes: ANES LWR INTST NDSC NOS - 57759 ([id number]) P3 - PATIENT W/SEVERE SYS DISEASE, QK - YARN SPOOLER 2-4 CNCRNT ANES PROC, QX - PHYSICIAN PRACTICE MARKET MANAGER SVC W/ MD MED DIRECTION
--- NOTE | 2025-05-23 07:57 | W.ANESCHARGE ---
Anesthesia Charges Start Date/Time Anesthesia Start Date: 05/23/25 Anesthesia Start Time: 07:33 Stop Date/Time Anesthesia Stop Date: 05/23/25 Anesthesia Stop Time: 07:54 Coding CPT Codes CPT Codes: ANES LWR INTST NDSC NOS - 53518 ([id number]) P3 - PATIENT W/SEVERE SYS DISEASE, QK - INFORMATION MANAGER 2-4 CNCRNT ANES PROC, QX - RESIDENTIAL PLUMBER SVC W/ MD MED DIRECTION
--- NOTE | 2025-05-23 10:03 | P.ANES_ITS ---
Anesthesia Charges Start Date/Time Anesthesia Start Date: 05/23/25 Anesthesia Start Time: 07:33 Stop Date/Time Anesthesia Stop Date: 05/23/25 Anesthesia Stop Time: 07:54 Coding CPT Codes CPT Codes: ANES LWR INTST NDSC NOS - 88661 ([id number]) QK - BUTTONHOLE TACKER 2-4 CNCRNT ANES PROC, QX - MEDICAL MASSAGE THERAPIST SVC W/ MED DIRECTION, P3 - PATIENT W/SEVERE SYS DISEASE
--- NOTE | 2025-05-23 10:03 | W.ANESCHARGE ---
Anesthesia Charges Start Date/Time Anesthesia Start Date: 05/23/25 Anesthesia Start Time: 07:33 Stop Date/Time Anesthesia Stop Date: 05/23/25 Anesthesia Stop Time: 07:54 Coding CPT Codes CPT Codes: ANES LWR INTST NDSC NOS - [id number] ([id number]) QK - FINANCIAL MANAGEMENT CONSULTANT 2-4 CNCRNT ANES PROC, QX - WRAPPER OPENER SVC W/ MED DIRECTION, P3 - PATIENT W/SEVERE SYS DISEASE
== END 2025-05-23 06:16 | disposition home or self-care (01) ==
PROVIDERS: PCP Student in an Organized Health Care Education/Training Program; Visit Provider Internal Medicine Gastroenterology
DX: Z12.11 Encounter for screening for malignant neoplasm of colon (principal); D12.1 Benign neoplasm of appendix
CPT/HCPCS: 00811; 00812; 45385; 88305; J2704